=== PATIENT | female | born 1955 | race Caucasian/White ===

== ENCOUNTER 2021-09-15 00:22 | Day surgery (SDC) | payer MEDICARE, SELFPAY ==
[2021-09-04 10:54] VITALS: BMI 34.4
--- NOTE | 2021-09-04 11:02 | PC.NURSE ---
Report to the Outpatient Waiting Room, entrance under the green pavilion located off [facility], at time _0600 on date __09/15/21 . OR Time: __729 . - You and your visitor will be asked a series of questions to screen for COVID 19 for your protection. - A mask is required within the hospital. - Only one visitor is allowed at this time. Patient visitors will be guided where to wait when not with patient. Preoperative COVID Testing Requirements: No COVID Test needed if: (proof is required; if not received patient will have Rapid Test prior to entry) - Patient has received COVID Vaccine at least 14 days prior to procedure date or - Patient has positive COVID test result within last 90 days of surgery date. COVID Test needed if above criteria is not met If not COVID vaccinated a COVID test must be conducted within 72 hours of surgery and patient is asked to isolate self from time of testing until procedure. You will go to the [facility] for your COVID testing. The [facility] is located at the corner of [address] [facility]. You will only be called if COVID results are positive and your surgeon may reschedule your elective surgery date. Patients may have clear liquids (water, carbonated beverages, clear teas, apple juice) until 3 hours prior to surgery with a maximum of 20 ounces. - No food from midnight until time of surgery - Infants may have breast milk until 4 hours before surgery, infant formula 6 hours prior to surgery. - Children will be allowed to drink immediately following surgery. If applicable, please bring a bottle or sippy cup to assist with drinking. Juice, water, soda, and popsicles are readily available. For infants on formula, please bring formula the day of surgery. Pacifiers are allowed. Take the following medications with a SIP of water the morning of surgery: __INHALERS Medications to discontinue per physician __ELIQUIS PER DR BROWN Date to take last dose Please no make-up, nail kyrgyz, hairspray, perfume, deodorant, or body powder the day of surgery. No jewelry (including any body piercings) or valuables the day of surgery, leave them at home. Please take a shower or bath the night before, or the morning of, surgery with an antibacterial soap. Wear comfortable, loose fitting clothing. Children are encouraged to wear pajamas. - Jewelry must be removed prior to entering the operating room. Rings and piercings that are not removed may be cut off. - The hospital will not accept responsibility for valuables. - Please leave all valuables, including medications, at home the day of surgery. If you are going home after surgery, a licensed pick up and delivery driver must drive you home. - NO public transportation without another adult. - We recommend that an adult stay with you for 24 hours following discharge. - We also recommend that you do not drive, make important decision, drink alcoholic beverages, or take any drugs that were not prescribed by your health care provider for at least 24 hours after your discharge time. For Pediatric surgeries, we recommend two adults accompany the child home (only one inside the building at this time). Follow any additional instructions given to you from your surgeon. Telephone instructions given to _PATIENT and asked if any additional questions and then verbalized understanding. Patient advised to call surgeon office or pre surgery nurse liaison [phone] if any additional questions.
--- NOTE | 2021-09-10 11:23 | PM.IMHP ---
H&P: HPI History of Present Illness Date/Time: 09/10/21 11:23 66-year-old female with mixed urinary incontinence. Her overactive bladder medications being treated with medications. She is here today for treatment of her stress incontinence Chief Complaint: stress incontinence Review of Systems Review of Systems: All systems reviewed & are unremarkable except as noted in HPI and below PMFSH Family History Family History Other Cerebrovascular accident Hypertension Social History Social History Smoking packs per day: 0.5 Smoking cigarettes per day: 10.0 Years smoked: 15 Smoking pack-years: 7.50 Smoking status: Former smoker Tobacco type: cigarettes Smoking end date: 09/30/98 Alcohol intake: current Alcohol use details: ONE DRINK PER MONTH Living arrangements: with family Spiritual care concerns: No Meds Home Medications and Allergies Home Medications Medication Instructions Recorded Confirmed Type albuterol sulfate 2 puff INHALATION PRN PRN 09/04/21 09/04/21 History apixaban [Eliquis] 5 mg PO BID 09/04/21 09/04/21 History budesonide-formoterol 1 puff INHALATION DAILY 09/04/21 09/04/21 History buspirone 5 mg PO HS 09/04/21 09/04/21 History escitalopram oxalate 20 mg PO HS 09/04/21 09/04/21 History gabapentin 300 mg PO HS 09/04/21 09/04/21 History hydrocodone-acetaminophen 1 tablet PO PRN PRN 09/04/21 09/04/21 History metformin 500 mg PO TID 09/04/21 09/04/21 History ropinirole 0.5 mg PO PRN PRN 09/04/21 09/04/21 History rosuvastatin 10 mg PO DAILY 09/04/21 09/04/21 History semaglutide [Ozempic] 0.5 mg SUBCUT WEEKLY 09/04/21 09/04/21 History tiotropium bromide [Spiriva 1 puff INHALATION DAILY 09/04/21 09/04/21 History Respimat] Allergies Allergy/AdvReac Type Severity Reaction Status Date / Time adhesive tape Allergy Severe RASH Verified 09/04/21 10:22 Exam Narrative: positive urethral mobility on exam. No pelvic organ prolapse Assessment and Plan Assessment and plan (1) JOE (stress urinary incontinence, female): Code(s): N39.3 - Stress incontinence (female) (male) Status: Acute Assessment and Plan: urethral sling
--- NOTE | 2021-09-15 06:33 | P.PNAN_ITS ---
Anes - Initial Pre Proc Eval Procedure: Operation Date: 09/15/21 07:30 Proposed Procedures p Urethral Sling - Shane Fitzgerald MD Date/Time: 09/15/21 06:33 Surgeon: Shane Fitzgerald MD Pre Op Diagnosis: stress incontinence Patient Data Age: 66 Gender: F Height: 1.68 m Weight: 96.7 kg Allergies Allergy/AdvReac Type Severity Reaction Status Date / Time adhesive tape Allergy Severe RASH Verified 09/15/21 06:14 Home Medications Medication Instructions Recorded Confirmed Type albuterol sulfate 2 puff INHALATION PRN PRN 09/04/21 09/15/21 History apixaban [Eliquis] 5 mg PO BID 09/04/21 09/15/21 History budesonide-formoterol 1 puff INHALATION DAILY 09/04/21 09/15/21 History escitalopram oxalate 20 mg PO HS 09/04/21 09/15/21 History gabapentin 300 mg PO HS 09/04/21 09/15/21 History hydrocodone-acetaminophen 1 tablet PO PRN PRN 09/04/21 09/15/21 History metformin 500 mg PO TID 09/04/21 09/15/21 History ropinirole 0.5 mg PO PRN PRN 09/04/21 09/04/21 History rosuvastatin 10 mg PO DAILY 09/04/21 09/04/21 History semaglutide [Ozempic] 0.5 mg SUBCUT WEEKLY 09/04/21 09/04/21 History tiotropium bromide [Spiriva 1 puff INHALATION DAILY 09/04/21 09/04/21 History Respimat] Patient hx anesthesia problems: none Family hx anesthesia problems: none Results Review: All pre-operative results and documents have been reviewed as part of the pre-operative evaluation. [facility] Past Medical History Medical History (Updated 09/15/21 @ 06:34 by Lamberto Raphael MD) Anxiety COPD (chronic obstructive pulmonary disease) DVT (deep venous thrombosis) Obesity Surgical History Surgical History (Updated 09/15/21 @ 06:34 by Lamberto Raphael MD) History of cholecystectomy History of total knee arthroplasty Family History Family History Other Cerebrovascular accident Hypertension Social History Social History Smoking packs per day: 0.5 Smoking cigarettes per day: 10.0 Years smoked: 15 Smoking pack-years: 7.50 Smoking status: Former smoker Tobacco type: cigarettes Smoking end date: 09/30/98 Alcohol intake: current Alcohol use details: ONE DRINK PER MONTH Living arrangements: with family Spiritual care concerns: No Anes - Eval Final PreProcedure Day of Procedure 09/15/21 06:33 Patient weight: obese Heart: regular rate and rhythm Lungs: clear to auscultation Airway: Mallampati scale class II Neurological: alert and oriented Last oral intake: >/= 8 hours ASA classification: III Emergent: no Anesthetic plan: proceed Anesthesia type and monitoring: general LMA and standard monitoring Results Review: All pre-operative results and documents have been reviewed as part of the pre-operative evaluation. Informed Consent: The patient's anesthetic plan and its attendant risks and benefits were discussed with the patient/family/POA. Questions were solicited and answers provided to the satisfaction of the patient/family/POA.
[2021-09-15] MEDS: LACTATED RINGERS 1,000 ML 30 ML IV CONT (06:55)
[2021-09-15 06:58] VITALS: BP 159/92; PULSE 90; RESP 16; TEMP 36.2; O2SAT 98
--- NOTE | 2021-09-15 07:05 | WPDHPUPDATE1 ---
History and Physical Update Update Date/Time: 09/15/21 07:05 History and Physical has been reviewed, including an updated exam of the patient. There are NO changes in the patient's condition. Risks, benefits, and alternatives have been discussed and questions answered. Patient agrees to proceed with procedure.
[2021-09-15] MEDS: ceFAZolin 2 GM/D5W 50 ML 2 GM/50 ML BAG IVPB (07:25)
[2021-09-15] MEDS: LIDO 1%/EPINEPHRINE 1:100,000 50 ML VIAL 10 ML INFILTRATE (07:38)
[2021-09-15 08:01] VITALS: BP 116/79; PULSE 78; RESP 14; O2SAT 94
--- NOTE | 2021-09-15 08:04 | W.PM.PROC2 ---
Procedure Note - Detailed Date of Procedure 09/15/21 Pre-op Diagnosis stress incontinence Post-op Diagnosis same Procedure Performed mid urethral sling cystoscopy Surgeon Shane Fitzgerald MD Indications This is a female with confirm stress urinary incontinence. She desires surgical correction. She understands the risks of bleeding, infection, injury to the urinary tract, vaginal mesh extrusion, urinary tract mesh erosion, obstructive voiding requiring a secondary procedure, hip and leg pain, dyspareunia, inability to improve overactive bladder symptoms. She agrees to proceed. She understands it will not help her urge incontinence symptoms. Description of Procedure She was correctly identified. Informed consent obtained. She was brought the operating room. She was given appropriate anesthesia. She was given appropriate perioperative antibiotics. A time-out performed. I marked out the site of the inner thigh incisions. I anesthetized the skin and made those incisions. I anesthetized the anterior vaginal wall over the mid urethra. I made a 1 cm incision. I dissected out laterally taking great care not to injure the refilled vaginal wall. I passed the helical trocars. First on the left. Then on the right. I did this from the thigh incision towards the vaginal incision. The sling was connected to the trocars and brought out through the thigh incision. I tensioned the sling appropriately. I cut and the plastic sheaths. I then closed the incision with 2 0 Vicryl. On cystoscopy there is no tumors or surgical artifact. There was no surgical artifact in the urethra. I cut the excess sling material. Close incisions with glue. She was awakened and transferred to the PACU in stable condition. Implants Urethral sling Drains No Packing No Pathology none sent Complications No immediate complications Condition stable Disposition PACU
[2021-09-15 08:30] VITALS: BP 121/64; PULSE 71; RESP 16
== END 2021-09-15 08:55 | disposition home or self-care (01) ==
PROVIDERS: PCP Internal Medicine; Visit Provider Urology
PROC: (CPT 57288; principal; 2021-09-15 07:30)
DX: N39.3 Stress incontinence (female) (male) (principal); J44.9 Chronic obstructive pulmonary disease, unspecified; F41.9 Anxiety disorder, unspecified; E66.9 Obesity, unspecified; Z68.34 Body mass index [BMI] 34.0-34.9, adult; Z79.51 Long term (current) use of inhaled steroids; Z79.01 Long term (current) use of anticoagulants; Z79.84 Long term (current) use of oral hypoglycemic drugs; Z86.718 Personal history of other venous thrombosis and embolism; Z79.899 Other long term (current) drug therapy; Z87.891 Personal history of nicotine dependence
CPT/HCPCS: 57288; A9270; C1771; J0690; J2250; J2704; J3010; J7030; J7120

== ENCOUNTER 2025-08-23 12:57 | Outpatient (CLI) | payer MEDICARE, SELFPAY ==
--- NOTE | ~2025-08-23 | XR_ITS ---
EXAMINATION: XR ankle RT min 3V, 08/23/2025 13:00 RENAL DIALYSIS TECHNICIAN HISTORY: chronic rt ankle tenderness and instability COMPARISON: No comparisons available. Findings: No acute fracture or malalignment. Moderate tricompartmental degenerative changes. Large calcaneal spur. Soft tissue swelling. Impression: No acute fracture or malalignment. Reviewed, dictated and finalized at location P. L DIALYSIS TECHNICIAN Impression: No acute fracture or malalignment.
== END 2025-08-23 12:58 | disposition home or self-care (01) ==
LOC: ANHBWCIMG 12:58
PROVIDERS: PCP Nurse Practitioner Family; Visit Provider Orthopaedic Surgery
DX: M25.571 Pain in right ankle and joints of right foot (principal)
CPT/HCPCS: 73610